=== PATIENT | male | born 1980 | race Caucasian/White ===

== ENCOUNTER → 2019-10-18 | Outpatient (REF) ==
--- NOTE | 2019-10-18 14:42 | Diagnostic Imaging Report ---
INDICATION: Pain. COMPARISON: None available. TECHNIQUE: Three radiographs of the left elbow dated October 18, 2019. FINDINGS: No acute fracture or dislocation. No destructive osseous process. Joint spaces are well-maintained. No joint effusion. No suspicious radiopaque foreign body. IMPRESSION: Unremarkable examination without acute osseous abnormality. Dictated by: Dictated on workstation # [id number]
== END | disposition home or self-care (01) ==
LOC: OCC 13:59
PROVIDERS: ATTEND Nurse Practitioner Family
CPT/HCPCS: 73080